=== PATIENT | male | born 1970 | race Caucasian/White ===

== ENCOUNTER 2017-12-03 08:59 | Emergency (ER) | payer OTHER, SELFPAY ==
[~2017-12-03] VITALS: Ht 177.8 cm; Wt 88.6 kg
[2017-12-03 09:01] VITALS: BP 143/97
[2017-12-03] MEDS ORDERED: TRAM50TA2 PO (09:23)
[2017-12-03] MEDS ORDERED: KETOROLAC 30 MG/1 ML ONE (09:36)
[2017-12-03] MEDS ORDERED: KETOROLAC 30 MG/1 ML IM ONE (10:00)
== END 2017-12-03 10:46 | disposition home or self-care (01) ==
LOC: ED 10:40
DX: S29.012A Strain of muscle and tendon of back wall of thorax, initial encounter (principal); S99.912A Unspecified injury of left ankle, initial encounter; X58.XXXA Exposure to other specified factors, initial encounter; Y93.89 Activity, other specified; Y92.89 Other specified places as the place of occurrence of the external cause; Y99.8 Other external cause status
CPT/HCPCS: 96372; 99283; J1885